=== PATIENT | male | born 2000 | race Caucasian/White ===

== ENCOUNTER 2025-06-30 20:41 | Emergency (ER) | payer OTHER ==
[~2025-06-30] VITALS: Ht 185.4 cm; Wt 79.1 kg
[2025-06-30] MEDS ORDERED: DOXYCYCLINE HYCLATE 100 MG HOME.PACK PO ONE (22:15)
[2025-06-30 22:17] VITALS: BP 136/89
== END 2025-06-30 22:18 | disposition home or self-care (01) ==
LOC: ED 20:41
DX: L02.511 Cutaneous abscess of right hand (principal); L03.113 Cellulitis of right upper limb
CPT/HCPCS: 10060; 99283-25; A9270

== ENCOUNTER 2025-08-06 10:20 | Emergency (ER) | payer OTHER ==
[~2025-08-06] VITALS: Ht 185.4 cm; Wt 84.5 kg
[2025-08-06] MEDS ORDERED: ASPIRIN 81 MG CHEW PO ONE (10:30)
[2025-08-06 10:48] LABS: BASOPHILS 0.4 % (0.2-1.2); EOSINOPHILS 0.7 % (0.8-7.0); LYMPHOCYTES 15.0 % (21.8-53.1); MCH 31.4 PG (25.7-32.2); MCHC 34.1 g/dL (32.3-36.5); MCV 92.0 fL (79.0-92.2); MONOCYTES 9.7 % (5.3-12.2); NEUTROPHILS 73.9 % (34.0-67.9); RBC 4.37 M/uL (4.63-6.08)
[2025-08-06 11:06] LABS: ALT (SGPT) 19 U/L (14-59); AST (SGOT) 16 U/L (15-37); GLOMERULAR FILTRATION RATE,EST 128 mL/min (>60); PROTEIN, TOTAL 7.0 g/dL (6.4-8.2); UREA NITROGEN 15 mg/dL (7-18)
[2025-08-06 13:50] VITALS: BP 112/65
--- NOTE | 2025-08-09 18:03 | EKG ---
[facility] [address] [place] [address] Signed Sinus tachycardia Otherwise normal ECG No previous ECGs available Confirmed by Abbi Gamez MD () on 08/09/2025 6:03:40 PM Electronically Signed By: ABBI GAMEZ MD 08/09/251802 PATIENT NAME: BIANKAANJELICA LITO Electrocardiogram DATE OF : [birth year] PHYSICIAN: ABBI GAMEZ MD REPORT #: [id number] REPORT IS CONFIDENTIAL AND NOT TO BE RELEASED WITHOUT AUTHORIZATION
== END 2025-08-06 13:50 | disposition home or self-care (01) ==
LOC: ED 10:20
PROVIDERS: Emergency Medicine
DX: R07.9 Chest pain, unspecified (principal)
CPT/HCPCS: 36415; 71045; 80053; 83735; 84484; 85025; 93005; 93010; 99285-25; A9270

== ENCOUNTER 2025-08-10 13:15 | Inpatient (IN) | payer OTHER ==
[~2025-08-10] VITALS: Ht 185.4 cm; Wt 82.6 kg
--- OUTSIDE RECORDS SUMMARY | 2025-08-10 13:16 | XMS ---
PreManage Notification: ANJELICA CARLTON Security Tie Bucker Events No recent Security Events currently on file CRITERIA MET - [facility] - 2 Visits in 30 Days CARE PROVIDERS -, [facility] Dentist: Anesthesiology [facility] [place] PHONE: [phone] SHREYA QUILES Physician [employer] Current PHONE: Unknown [facility] Clinic/Center: [facility] Qualified [facility] <UNAVAIL> PHONE: [phone] Danuta has no Care Guidelines for this patient. E.D. VISIT COUNT (12 MO.) 3 ANUJA Gonzales TOTAL 3 NOTE: Visits indicate total known visits. ED/UCC VISIT TRACKING (12 MO.) 08/10/2025 13:16 ANUJA Morales OR TYPE: Emergency COMPLAINT: - FLANK PAIN 08/06/2025 10:21 ANUJA Morales [place] TYPE: Emergency COMPLAINT: - CHEST PAIN DIAGNOSES: - Chest pain, unspecified 06/30/2025 20:42 ANUJA Morales OR TYPE: Emergency COMPLAINT: - SWOLLEN HAND DIAGNOSES: - Cellulitis of right upper limb - Cutaneous abscess of right hand - Pain in right hand INPATIENT VISIT TRACKING (12 MO.) 02/26/2025 01:59 [facility] OR TYPE: Medical Surgical DIAGNOSES: - Cocaine use, unspecified, uncomplicated - Other stimulant dependence, uncomplicated - Unspecified psychosis not due to a substance or known physiological condition [id number]
[2025-08-10] MEDS ORDERED: KETOROLAC TROMETHAMINE 15 MG/ML VIAL IV ONE (13:45)
[2025-08-10 13:46] LABS: BASOPHILS 0.5 % (0.2-1.2); EOSINOPHILS 0.7 % (0.8-7.0); LYMPHOCYTES 14.3 % (21.8-53.1); MCH 30.8 PG (25.7-32.2); MCHC 33.7 g/dL (32.3-36.5); MCV 91.6 fL (79.0-92.2); MONOCYTES 9.1 % (5.3-12.2); NEUTROPHILS 75.2 % (34.0-67.9); RBC 4.51 M/uL (4.63-6.08)
[2025-08-10 14:06] LABS: ALT (SGPT) 19.0 U/L (14-59); AST (SGOT) 20.0 U/L (15-37); GLOMERULAR FILTRATION RATE,EST 130.0 mL/min (>60); PROTEIN, TOTAL 7.7 g/dL (6.4-8.2); UREA NITROGEN 14.0 mg/dL (7-18)
[2025-08-10] MEDS ORDERED: SODIUM CHLORIDE 0.9% 1,000 ML IV PRN ×2 (14:15→15:00)
[2025-08-10 14:53] LABS: LACTIC ACID, BLOOD 0.7 mmol/L (0.4-2.0)
[2025-08-10 14:54] LABS: INR 1.13 (0.80-1.30); PROTIME 14.1 Sec (11.2-14.2)
[2025-08-10] MEDS ORDERED: VANCOMYCIN HCL 2,000 MG in DEXTROSE 5% 500 ML IV ONE (15:00)
[2025-08-10] MEDS ORDERED: SODIUM CHLORIDE 0.9% 500 ML IV PRN (15:00)
[2025-08-10] MEDS ORDERED: CEFEPIME HCL 2 GM in SODIUM CHLORIDE 0.9% 100 ML IV ONE (15:00)
[2025-08-10 15:20] LABS: INFLUENZA B NAA NEGATIVE (NEGATIVE); RESPIRATORY SYNCYTIAL VIR NAA NEGATIVE (NEGATIVE)
[2025-08-10] MEDS ORDERED: ACETAMINOPHEN 500 MG TAB PO ONE (16:15)
[2025-08-10] MEDS ORDERED: ACETAMINOPHEN 325 MG TAB PO PRN (17:30)
[2025-08-10] MEDS ORDERED: SODIUM CHLORIDE 0.9% 1,000 ML IV SCH (17:30)
[2025-08-10 17:52] LABS: BLOOD/HGB, URINE TRACE-I (Negative); KETONE, URINE SMALL (Negative); LEUK ESTERASE, URINE NEGATIVE (negative); NITRITE, URINE NEGATIVE (negative)
[2025-08-10 18:03] LABS: EPITHELIAL CELLS, URINE SQUAMOUS 1+ /lpf (0-1+)
[2025-08-10 18:04] LABS: BACTERIA, URINE NONE SEEN /hpf (negative); CASTS, URINE NONE SEEN \\lpf; CRYSTALS, URINE NONE SEEN (0-1+); REFLEX CULTURE, URINE No (No)
[2025-08-10 18:18] VITALS: BP 108/68
[2025-08-10 18:20] LABS: AMPHETAMINES, URINE POSITIVE (NEGATIVE); BARBITURATES, URINE NEGATIVE (NEGATIVE); BENZODIAZEPINE, URINE NEGATIVE (NEGATIVE); CANNABINOID, URINE POSITIVE (NEGATIVE); COCAINE, URINE NEGATIVE (NEGATIVE); ECSTASY, URINE POSITIVE (NEGATIVE); FENTANYL, URINE POSITIVE (NEGATIVE); METHADONE, URINE NEGATIVE (NEGATIVE); OPIATES, URINE NEGATIVE (NEGATIVE); OXYCODONE, URINE NEGATIVE (NEGATIVE); PHENCYCLIDINE, URINE NEGATIVE (NEGATIVE)
[2025-08-10] MEDS ORDERED: NICOTINE 21 MG/24 HR 1 EA TDSY TD SCH (18:30)
[2025-08-10] MEDS ORDERED: ALBUTEROL SULFATE 0.083% 3 ML VIAL INH PRN (18:45)
--- NOTE | 2025-08-10 18:53 | NUR ---
PATIENT ADMITTED TO CCU AROUND 1809 FOR MULTIFOCAL PNEUMONIA. PT IS DROWSY BUT ABLE TO BE AWOKEN TO STAND AND PIVOT TO CCU BED. HR IN THE 120s WITH THIS ACTIVITY. PT FALLS BACK ASLEEP QUICKLY BUT DOES AWAKEN WITH LIGHT TOUCH AND VOICE. PT ADMITS TO USING FENTANYL EARLIER TODAY AROUND 1200, WHICH HE SMOKES DAILY. PT HAS 9/10 PAIN IN RIGHT SIDE CHEST/FLANK/LATERAL SIDE. PT ARRIVES ON ROOM AIR AND SP02 STAYING ABOVE 90% INITIALLY BUT THEN FALLS AND NEEDING OXYGEN. PT NOW ON 2 L NC. PLAN OF CARE DISCUSSED. PT'S S/O SHREYA TO BE COMING BACK TO STAY WITH HIM. PT REPORTS BEING HOMELESS. PHONE CALL WITH PT'S MOTHER DESTINY AND SHE LEFT HER NUMBER [phone] AND STATES SHE WOUL DLIKE AN UPDATE IF ANYTHING CHANGES WITH PATIENT. NS AT 125 ML/HR INFUSING PER EMAR ORDER. LAST BP 96/48 (62) AND WILL CONTINUE TO MONITOR. HR NOW 109. BED ALARM ON FOR SAFETY PATIENT REMAINS DROWSY.
[2025-08-10 19:00] VITALS: BP 99/56
[2025-08-10 20:00] VITALS: BP 110/65
--- NOTE | 2025-08-10 20:15 | NUR ---
RECEIVED REPORT FROM DAY SHIFT NURSE. PATIENT ASSESSMENT COMPLETE. PATIENT HAS NO COMPLAINT OF PAIN. SOME REDNESS AROUND A TATTOO ON PATIENT'S LEFT ARM. PATIENT AND PATIENT'S PARTNER REQUESTING FOOD AT THIS TIME. GIVEN JUICE AND SANDWICH. PATIENT AROUSES TO PHYSICAL STIMULI BUT DECLINES TO COMMUNICATE WHEN ASKED QUESTIONS. CALL LIGHT AND PERSONAL BELONGINGS ARE WITHIN REACH.
[2025-08-10 21:00] VITALS: BP 108/59
--- NOTE | 2025-08-10 21:54 | EKG ---
[facility] [address] [facility] [place] [address] Signed Sinus tachycardia Otherwise normal ECG When compared with ECG of 06-AUG-2025 10:26, No significant change was found Confirmed by Abbi Gamez MD () on 08/10/2025 9:54:31 PM Electronically Signed By: ABBI GAMEZ MD 08/10/[id number] PATIENT NAME: ANJELICA CARLTON Electrocardiogram DATE OF : [birth year] PHYSICIAN: ABBI GAMEZ MD REPORT #: [id number] REPORT IS CONFIDENTIAL AND NOT TO BE RELEASED WITHOUT AUTHORIZATION
[2025-08-10 22:00] VITALS: BP 107/57
[2025-08-10] MEDS ORDERED: PIPERACILLIN/TAZOBACTAM 4.5 GM in DEXTROSE 5% 100 ML IV SCH (22:00)
--- NOTE | 2025-08-10 22:45 | NUR ---
PATIENT UPDATED ON MRSA RESULTS, PRECAUTIONS INITIATED, PATIENT DENIES FURTHER QUESTIONS. IV ANTIBIOTICS AND FLUIDS INFUSING WNL. PATIENT NOW RESTING WITH EYES CLOSED, RESPIRATIONS EVEN AND UNLABORED, HR 113 AND RR 33. CALL LIGHT AND PERSONAL BELONGINGS ARE WITHIN REACH.
[2025-08-10 23:00] VITALS: BP 113/60
[2025-08-11] VITALS (21 sets, daily range): BP systolic 106–135; BP diastolic 48–101
[2025-08-11] MEDS ORDERED: VANCOMYCIN HCL 1,250 MG in DEXTROSE 5% 250 ML IV SCH
--- NOTE | 2025-08-11 02:20 | NUR ---
UPDATED DR. GAMEZ ABOUT PATIENT'S PAIN AND REQUEST OF PAIN MEDICATIONS. i DISCUSSED GIVING HIM THE PRN TYLENOL AND TRYING A HOT. PATIENT IS HAVING 6/10 RIGHT SIDE PAIN. COMMUNICATED PLANNING TO PUT IN ORDERS.
[2025-08-11] MEDS ORDERED: HYDROmorphone HCL 1 MG/ML SYR IV PRN (02:30)
[2025-08-11] MEDS ORDERED: KETOROLAC TROMETHAMINE 15 MG/ML VIAL IV PRN (02:30)
--- NOTE | 2025-08-11 03:15 | NUR ---
PATIENT GIVEN IV TORADOL AND DILAUDID PER MAR. PATIENT REPORTED PAIN 7/10 ON RIGHT SIDE OF CHEST, STATES "HURTS WORSE WHEN I COUGH OR TAKE A DEEP BREATH" PATIENT SCREAMED OUT IN PAIN WHILE COUGHING. PATIENT PERFUSELY SWEATING WITH A TEMP OF 99.1, ICE PACK AND ICE WATER GIVEN AND COVERS REMOVED. PATIENT REQUESTING SWEETS STATING, "I USE OPIATES I HAVE A SWEET TOOTH, THAT'S WHY I AM CRAVING SWEETS." PATIENT GIVEN PUDDING AND DEMETRI CRACKERS. NO FURTHER NEEDS REPORTED AT THIS TIME.
[2025-08-11 05:16] LABS: BASOPHILS 0.4 % (0.2-1.2); EOSINOPHILS 0.6 % (0.8-7.0); LYMPHOCYTES 11.6 % (21.8-53.1); MCH 30.8 PG (25.7-32.2); MCHC 34.3 g/dL (32.3-36.5); MCV 89.8 fL (79.0-92.2); MONOCYTES 10.9 % (5.3-12.2); NEUTROPHILS 76.2 % (34.0-67.9); RBC 4.12 M/uL (4.63-6.08)
--- NOTE | 2025-08-11 05:21 | NUR ---
patient uses call light to use restroom. patient up to bathroom, voids, then ambulates back to bed. patient steady on feet. patient provided with snacks. no further needs at this time. call light in reach.
[2025-08-11 05:35] LABS: ALT (SGPT) 19.0 U/L (14-59); AST (SGOT) 14.0 U/L (15-37); GLOMERULAR FILTRATION RATE,EST 137.0 mL/min (>60); PHOSPHORUS, INORGANIC 3.0 mg/dL (2.5-4.9); PROTEIN, TOTAL 6.0 g/dL (6.4-8.2); UREA NITROGEN 8.0 mg/dL (7-18)
[2025-08-11] MEDS ORDERED: IBUPROFEN 600 MG TAB PO PRN (07:15)
--- NOTE | 2025-08-11 07:30 | NUR ---
received report, in room to answer call light, pt resting in bed with eyes closed, hr 90's. s/o in chair wants to know when breakfast is? educated and updated white board. pt with call light and iv fusing wnl.
--- NOTE | 2025-08-11 07:33 | NUR ---
UR CLINICAL REVIEW: [facility], MEETS INPT FOR ASPIRATION PNEUMONIA TACHYPNEA, TACHYCARDIA, IV FLUIDS, IV ANTIBIOTICS, WHITE COUNT 13.01, SURGICAL CONSULT, POTENTIAL CHEST TUBE NEED, SURGICAL CONSULT [facility] INPT 08/10/25 @ 1729 ORDER MATCHES REG AUTH PENDING, WILL SEND CLINICALS FOR REVIEW TODAY. PLAN TO DC TO HOME WHEN MEDICALLY CLEAR VERSUS TRANSFER TO HIGHER LEVEL OF CARE. DC REVIEW: 08/12/25
--- NOTE | 2025-08-11 07:47 | NUR ---
RECIEVED SHIFT REPORT. PT IS RESTING IN BED, EYES CLOSED. BREATHING EVEN AND UNLABORED. BREAKFAST BROUGHT INTO ROOM. VISITOR AT BEDSIDE. CALL LIGHT IN REACH.
[2025-08-11] MEDS ORDERED: NICOTINE 21 MG/24 HR 1 EA TDSY TD SCH (09:00)
[2025-08-11] MEDS ORDERED: VANCOMYCIN PER PHARMACY PROTOCOL IV SCH (09:00)
--- NOTE | 2025-08-11 09:17 | NUR ---
IN ROOM WITH DR TO SEE PT, HE AWAKENS TO TOUCH AND STIMULI. DISCUSSED PREVIOUS WITHDRAWL SYMPTOMS - SWEATING, SWEET CRAVINGS, ANXIETY. PT IN BED, WITH CALL LIGHT.
--- NOTE | 2025-08-11 09:30 | NUR ---
20 G IV INSERTED BY THIS RN IN THE RFA DUE TO MULTIPLE ABX USE. PATIENT TOLERATED WELL, PATENT. ABX INFUSING WITHOUT DIFFICULTY. CALL LIGHT IN REACH.
[2025-08-11] MEDS ORDERED: LORazepam 2 MG/ML VIAL IV PRN (10:00)
--- NOTE | 2025-08-11 10:00 | NUR ---
INTO SEE PATIENT. PATIENT PERSONAL HEALTH INFORMATION REVIEWED. PATIENT WOULD LIKE HELP GETTING A PRIMARY CARE PROVIDER HERE IN [place]. PATIENT IS CURRENTLY HOMELESS. GIRLFRIEND IN ROOM. THEY HAVE HAD THERE NAME ON A LIST FOR [facility]. SPOKE WITH HIM ABOUT WANTING ANY ADDICTION SERVICES INPATIENT OR OUTPATIENT. PATIENT STATES "I HAVE BEEN TO REHAB 4 TIMES AND IT NEVER HAS WORKED FOR ME." GAVE HIM THE HOMELESS AND ADDICTION RESOURCE [place], LOC AND AMADO. LET THEM KNOW THEY COULD POTENTIALLY HELP WITH TEMPORARY HOUSING. LEFT MESSAGE WITH [facility] TO SCHEDULE FOR NEW PCP
--- NOTE | 2025-08-11 10:31 | NUR ---
RN IN ROOM TO POSITION PT AT BEDSIDE FOR US WITH ERASTO BELLO. HE IS PREPPING AND LOOKING AT RIGHT CHEST FOR RADIOLOGY TO DRAIN FLUID LATER THIS AFTERNOON. PT TOLLERATED WELL. NPO CONFIRMED. CALL LIGHT IN REACH.
--- NOTE | 2025-08-11 10:40 | NUR ---
IN ROOM WITH PT AND S/O WHILE WILLY DC DISPATCH SPECIALIST IS IN, PT RESTING IN BED WITH CALL LIGHT - REPORTS PAIN IMPROVED TO R CHEST 03/31.
--- NOTE | 2025-08-11 10:58 | NUR ---
call from [facility] in xray with report that dr phelan radiology would type up report concern for less than 500 ml of fluid loculated in us of right chest. dr toledo notified by this rn that bedside us was done and dr toledo will call now to speak with zhane for further plan of care.
--- NOTE | 2025-08-11 11:01 | NUR ---
CALL LIGHT ANSWERED. IVF AND IV ABX COMPLETE. NEW IVF BAG INFUSING PER EMAR. PATIENT DENIES NEEDS AT THIS TIME. PATIENTS S/O EDUCATED TO NOT PROVIDED PATIENT W/ FOOD OR FLUIDS AT THIS TIME. PATIENTS S/O VERBALIZES UNDERSTANDING. CALL LIGHT IN REACH
[2025-08-11] MEDS ORDERED: PHARMACY RENAL DOSE ADJUSTMENT 1 DOSE MISC PO SCH (12:00)
--- NOTE | 2025-08-11 12:34 | NUR ---
ASSESSMENT COMPLETED, VS DOCUMENTED. S/O IN ROOM. IVF INFUSING WITHOUT DIFFICULTY. NO NEEDS AT THIS TIME. CALL LIGHT IN HAND.
--- NOTE | 2025-08-11 13:12 | NUR ---
ROUNDED ON PATIENT, RESTING WITH EYES CLOSED, RESPIRATIONS EVEN AND UNLABORED. IVF INFUSING WITHOUT DIFFICULTY. S/O IN ROOM. VS DOCUMENTED. NO NEEDS IDENTIFIED AT THIS TIME. CALL LIGHT IN REACH.
--- NOTE | 2025-08-11 14:00 | NUR ---
in pt room to assist for c/o being warm - repositioned pt for xray feet on ground vitals taken - chg wipes done by rn, pt on room air sats 94%. call light in reach with 3 xray staff at pt side for procedure.
--- NOTE | 2025-08-11 14:37 | NUR ---
PT REPORTS 5/10 R CHEST/LUNG PAIN - COUGHS UP THICK DARK SPUTUM, SLIGHT HAND TREMOR. SLEEPY AND REPETATIVLY ASKING FOR FOOD AND HE IS NPO - EXPLIANED THAT WE WILL CALL AND ASK DR ABOUT FOOD NOW THAT TEST IS DONE. SPECIMEN SENT TO LAB FROM TEST BY REFRACTORY MANAGER CHELSEY. R POSTERIOR LUNG HAS SMALL PUNCTURE AREA AND COVERED WITH SMALL BAND AID. DR GAMEZ IN AT BEDSIDE AT 1439. PT ASKS FOR ICECREAM.
[2025-08-11 15:11] LABS: APPEARANCE, BODY FLUID SLIGHTLY CLOUDY; MONONUCLEAR CELLS, BODY FLUID 10 %; PMNS, BODY FLUID 90 %; RBC, BODY FLUID 556 /mm3
[2025-08-11 15:12] LABS: WBC, BODY FLUID 16444 /mm3
--- NOTE | 2025-08-11 15:42 | NUR ---
MED REC COMPLETE
[2025-08-11] MEDS ORDERED: VANCOMYCIN HCL 1,750 MG in DEXTROSE 5% 500 ML IV SCH (16:00)
--- NOTE | 2025-08-11 16:30 | NUR ---
PT SLEEPING IN ROOM. PT ALERT WHEN WOKEN UP. RLL DIMINISHED. OTHER LOBES CLEAR. PT DETOXING FROM METH. PT SLEEPING AND IS CRAVING SUGARY FOOD. PT STILL TACHY WITH A LOW GRADE FEVER. PT DID STATE THAT HE WAS BREATHING BETTER THOUGH.
--- NOTE | 2025-08-11 19:50 | NUR ---
RECEIVED REPORT FROM DAY SHIFT NURSE. PATIENT CONTINUES TO BE IN MRSA PECAUTIONS. PATIENT HAS TEMP OF 101.6, ICE WATER, ICE PACK AND MOTRIN GIVEN, WASHCLOTH ON FOREHEAD. PATIENT REPORTED 7/10 RIGHT RIB PAIN, PRN DILAUDID GIVEN. PATIENT'S DRESSING ON RIGHT BACK IS WNL, CLEAN DRY AND INTACT. DENIES SOB, ENDORSES INCREASED PAIN WITH DEEP BREATHING. IV SITES WNL. LUNG SOUNDS CLEAR IN UPPER LOBES AND DIMINISHED IN THE BILATERAL BASES. PATIENT DENIES FURTHER NEEDS AT THIS TIME. PARTNER SLEEPING IN THE COUCH.
--- NOTE | 2025-08-11 22:16 | NUR ---
FEVER IMPROVING WITH TEMP OF 100.5, ICE PACK AND WASH CLOTH IN PLACE. PATIENT REPORTS 4/10 PAIN. DENIES FURTHER NEEDS. FRESH ICE WATER AND SNACKS AT THE BEDSIDE. IV ANTIBIOTICS AND FLUIDS INFUSING WNL.
--- NOTE | 2025-08-11 22:24 | NUR ---
PATIENT'S MOM CALLED ASKING TO SPEAK TO PATIENT. PER PATIENT'S APPROVAL CALL TRANSFERRED TO PHONE IN ROOM. PATIENT TALKING TO MOTHER.
--- NOTE | 2025-08-11 22:31 | NUR ---
CALL LIGHT ANSWERED FRESH ICE WATER AND SNACKS GIEVN PER REQUEST. PATIENT DENIES FURTHER NEEDS.
[2025-08-12] VITALS (9 sets, daily range): BP systolic 101–137; BP diastolic 43–97
[2025-08-12 05:19] LABS: BASOPHILS 0.4 % (0.2-1.2); EOSINOPHILS 1.3 % (0.8-7.0); LYMPHOCYTES 15.5 % (21.8-53.1); MCH 30.3 PG (25.7-32.2); MCHC 33.6 g/dL (32.3-36.5); MCV 90.1 fL (79.0-92.2); MONOCYTES 12.7 % (5.3-12.2); NEUTROPHILS 69.7 % (34.0-67.9); RBC 4.03 M/uL (4.63-6.08)
[2025-08-12 05:38] LABS: ALT (SGPT) 20.0 U/L (14-59); AST (SGOT) 14.0 U/L (15-37); GLOMERULAR FILTRATION RATE,EST 140.0 mL/min (>60); PROTEIN, TOTAL 6.1 g/dL (6.4-8.2); UREA NITROGEN 5.0 mg/dL (7-18)
--- NOTE | 2025-08-12 07:25 | NUR ---
report from mine shifter, pt resting in bed hr 100's, call light in reach. eyes closed.
--- NOTE | 2025-08-12 08:23 | NUR ---
xray in for f/u cxr. pt eating breakfast and reports pain to r chest improved today - still anxious and agitated post meth use. voids using urinal qs. call light in reach.
--- NOTE | 2025-08-12 08:26 | NUR ---
DC REVIEW: BARRIERS TO DC NOTED HOMELESS WITH ACTIVE IVDA AND LACK OF RESOURCES RESOURCES PROVIDED FOR LOCAL SUBASTANCE ABUSE SERVICES, MEAL OPTIONS AND HOUSING. ESTABLISHED WITH PCP PRIOR TO DC ADD:TBD NO ACTIONS REQUIRED
--- NOTE | 2025-08-12 09:30 | NUR ---
INTO SEE PATIENT. GIRLFRIEND AT BEDSIDE. PATIENT AGREEABLE TO SEE LOC. LET HIM KNOW LOC WOULD BE UP AT SOME POINT TODAY. LET HIM KNOW I GOT HIM A PCP HERE IN [place]. PATIENT GIRLFRIEND STATES [facility] WILL HELP THEM AT TIME OF DISCHARGE.
--- NOTE | 2025-08-12 10:10 | NUR ---
dee staff in to see pt and s/o - dr toledo in to see pt skin - new tatoo left arm with red area that is open. pt reports it is improved. pt bari is alert and awake and not interested in detox with staff member.
--- NOTE | 2025-08-12 11:24 | NUR ---
UPDATED DR GAMEZ ON I/O - OK TO SL IV, PT VOID QS IN TOILET - AMB IN ROOM AND UP IN CH CURRENTLY WITH CALL LIGHT IN REACH.
--- NOTE | 2025-08-12 11:53 | NUR ---
PT UP IN CHAIR, CALL LIGHT IN REACH - LUNCH TO BEDSIDE, EYES CLOSED HR 97 PT ON ROOM AIR, IV SL.
--- NOTE | 2025-08-12 12:01 | NUR ---
PT REMOVED ALL HIS MONITORS - CARDIAC LEADS AND WALKED TO BATHROOM-STEADY GAIT - VOID QS. PT BACK TO CHAIR FOR LUNCH. SATS 100% ROOM AIR, 116 HR, TEMP 99. PT WITH CALL LIGHT.
--- NOTE | 2025-08-12 13:50 | NUR ---
pt ate 100% of lunch - resting in bed with call light, pt education on new pcp to bedside.
--- NOTE | 2025-08-12 15:25 | NUR ---
pt resting in bed, resp even, call light in reach - oj and warm blanket provided from his previous request-
--- NOTE | 2025-08-12 17:02 | NUR ---
PT NOTED TO HAVE NICOTINE PATCH ON BEDSIDE TABLE. PT STATED IT IS "MAKING HIM SWEAT". PT DOES NOT WANT TO HAVE IT REPLACED. DISPOSED OF PATCH.
--- NOTE | 2025-08-12 18:47 | NUR ---
pt provided orange juice and warm blkt. oral temp 98. and pt awake watching tv and talking on cell phone. call light in reach - denies needs.
--- NOTE | 2025-08-12 18:55 | NUR ---
abx complete - sl flush iv wnl. pt resting with call light.
--- NOTE | 2025-08-12 20:00 | NUR ---
PATIENT RESTING IN BED. EYES CLOSED, ALERT AND RESPONSIVE TO THIS RN SAYING HIS NAME. INTRODUCED MYSELF AND DISCUSSED CARE PLAN FOR TONIGHT WITH PATIENT. HE IS COOPERATIVE AT THIS TIME TO HAVE HIS HEART MONITOR LEADS PLACED, OXYGEN SENSOR PLACED AND B/P TAKEN. HE REPORTS HIS PAIN IS 6/10 BUT THIS IS BETTER THAN EARLIER, HE REPORTS TYLENOL AND MOTRIN WAS HELPFUL. HE ASKED TO HAVE LIGHT OVER COUCH TURNED OFF AND IF THERE IS ANY MILK AND OR SNACKS AVAILABLE. THIS RN PROVIDED MILK, PUDDING, 2 FRIUT CUPS, AND DEMETRI CRACKERS. PATIENT VERBALIZED, "THANK YOU." HE REPORTS NO FURTHER NEEDS AT THIS TIME. DISCUSSED WITH PATIENT THAT IF HIS PAIN INCREASES TO CALL TO ALERT THIS RN FOR INTERVENTION. HE NODDED HIS HEAD, YES AND SAID "OK". DISCUSSED WITH PATIENT TO CALL BEFORE GETTING OUT OF BED FOR LINE MANAGEMENT, HE VERBALIZED, "OK." CALL IGHT IN REACH. ASSESSMENT COMPLETE. NO NEW CONCERNS FROM SHIFT REPORT.
--- NOTE | 2025-08-12 21:25 | NUR ---
PATIENT UP OUT OF BED, USED CALL LIGHT TO CALL NURSE, THIS RN INTO PATIENT ROOM, HE REPORTS HE NEEDS TO "PEE." ASSISTED WITH LINE MAMAGEMENT. PATIENT VOIDED IN TOILET THEN BACK TO BED. HE REPORTS HE WOULD LIKE MORE FOOD IF POSSIBLE. LUNCH BOX ORDERED.
--- NOTE | 2025-08-12 22:32 | NUR ---
PATIENTS SIGNIFICANT OTHER BACK IN ROOM. THIS RN ASKED HER IF SHE WAS HUNGRY, SHE SAID, "A LITTLE." THIS RN PROVIDED HER WITH LUNCH BOX AND APPLE JUICE. PATIENT IS RESTING IN BED, DROWSY BUT ALERT TO RN TALKING. HE REPORTS NO NEEDS AT THIS TIME.
[2025-08-13] VITALS (8 sets, daily range): BP systolic 97–128; BP diastolic 55–83
--- NOTE | 2025-08-13 00:05 | NUR ---
PATIENT VOIDED 700 ML IN URINAL AT BEDSIDED. THIS RN INTO COMPLETE ASSESSMENT AND ADMINISTER VANCOMYCIN SCHEDULED DOSE AT THIS TIME. HE IS ALERT, HE REPORTS HE IS DOING WELL, HE REPORTS NO NEEDS AT THIS TIME. HE IS INTERACTING WITH STAFF APPROPRIATELY. HE IS OFFERED ORANGE JUICE, HE SAID YES PLEASE, HE WAS OFFERED MEAL BOX HE DECLINED AT THIS TIME. NO NEW CONCERNS ON ASSESSMENT.
--- NOTE | 2025-08-13 00:37 | NUR ---
PATIENT CALLED NURSES STATION, THIS RN INTO ROOM. PATIENT REPORTS PAIN AT HIS LOWER LEFT BACK, 6/10 HE IS NOTED TO BE RESTLESS, HE REPORTS THIS IS CHRONIC, HE SAID, "ITS NOT NEW, I JUST HAVENT BEEN ABLE TO POP MY BACK." DILAUDID AND TYLENOL ADMINISTERED PRN, ICE PACK PROVIDED PER HIS REQUEST. NO OTHER REQUESTS AT THIS TIME.
--- NOTE | 2025-08-13 02:02 | NUR ---
PATIENT NOTED TO HAVE INCREASE HEART RATE TO 137/MIN, THIS RN INTO PATIENT ROOM TO CHECK ON HIM, HE IS GETTING BACK TO BED AFTER URINATING AT BEDSIDE IN URINAL 600ML CLEAR YELLOW. PATIENT REPORTS NO NEEDS AT THIS TIME.
--- NOTE | 2025-08-13 05:31 | NUR ---
ROUDNING ON PATIENT FOR AM ASSESSMENT AND V/S, PATIENT IS VERY RESTLESS, REPORTS PAINFUL 6/10, VERBALIZED NEEDS MORE THAN MOTRIN, MOTRIN AND DILAUDID PRN ADMINISTERED FOR GENERALIZED PAIN AND RIGHT CHEST WALL WELL BACK. NO NEW CONCERNS ON ASSESSMENT. PATIENT UP TO BATHROOM TO VOID. TOLERATED ACTIVITY WELL. STEADY GAIT. PATIENT REPORTS NO OTHER NEEDS AT THIS TIME. CALL LIGHT IN REACH.
--- NOTE | 2025-08-13 07:15 | NUR ---
HANDOFF REPORT RECEIVED FROM KAISER GRAVES. ALL QUESTIONS ANSWERED. PATIENT RESTING IN BED. HR 70'S, NSR. CALL LIGHT IN REACH
[2025-08-13 07:45] LABS: BASOPHILS 0.6 % (0.2-1.2); EOSINOPHILS 1.4 % (0.8-7.0); LYMPHOCYTES 14.3 % (21.8-53.1); MCH 30.6 PG (25.7-32.2); MCHC 33.4 g/dL (32.3-36.5); MCV 91.6 fL (79.0-92.2); MONOCYTES 9.4 % (5.3-12.2); NEUTROPHILS 74.0 % (34.0-67.9); RBC 4.41 M/uL (4.63-6.08)
[2025-08-13 08:02] LABS: ALT (SGPT) 41.0 U/L (14-59); AST (SGOT) 21.0 U/L (15-37); GLOMERULAR FILTRATION RATE,EST 130.0 mL/min (>60); PROTEIN, TOTAL 7.0 g/dL (6.4-8.2); UREA NITROGEN 4.0 mg/dL (7-18)
--- NOTE | 2025-08-13 08:15 | NUR ---
PATIENT ASSESSMENT COMPLETE. PATIENT DROWSY AND RESTING IN BED, BUT EASILY AROUSABLE TO VERBAL STIMULI AND RESPONDS APPROPRIATELY TO QUESTIONS. RR EVEN AND UNLABORED. PATIENT REMAINS ON RA, SPO2 98%. PATIENT DENIES SOB AT THIS TIME. HR 70'S-80'S, NSR. PATIENT RATING PAIN 4/10 IN THE R. SIDE OF CHEST WALL, PATIENT DECLINES NEED FOR PAIN MEDICATION AT THIS TIME. PATIENT REQUESTING TO CONTINUE TO REST IN BED AT THIS TIME. MEAL TRAY AND CHAIR SET UP FOR PATIENT. PATIENT VERBALIZED THAT HE WILL GET UP TO CHAIR WHEN READY FOR MEAL. VITAL SIGNS STABLE. IV ABX INFUSING PER EMAR. PATIENT DECLINES NICOTINE PATCH THIS AM. NO FURTHER NEEDS IDENTIFIED. S/O AT BEDSIDE. CALL LIGHT IN REACH.
--- NOTE | 2025-08-13 09:30 | NUR ---
PATIENT RESTING IN BED. RR EVEN AND UNLABORED. PATIENT REMAINS IN NSR. NO EVIDENCE OF ACUTE DISTRESS NOTED. CALL LIGHT IN REACH
--- NOTE | 2025-08-13 11:15 | NUR ---
PATIENT RESTING IN BED. IV SITES SALINE LOCKED AND WNL. PATIENT DENIES SOB OR NAUSEA AT THIS TIME. PATIENT RATES PAIN 4/10 ON THE R. SIDE OF CHEST BUT STATES IT IS A TOLERABLE LEVEL AND DENIES NEED FOR PAIN MEDICATION. RR EVEN AND UNLABORED. SPO2 98% ON RA AND PATIENT TOLERATING WELL. PATIENT STATES HE AMBULATED TO BATHROOM AND HAD A X1 UM VOID. PATIENT PROVIDED SNACKS AND PO FLUIDS. PATIENT DENIES FURTHER NEEDS AT THIS TIME. PLAN MADE TO SHOWER LATER THIS AFTERNOON. PATIENT UPDATED ON POC. PATIENT SAT UP IN BED AND EDUCATED TO NOT EAT WHILE LYING DOWN TO PREVENT ASPIRATION PATIENT STATES VERBAL UNDERSTANDING. CALL LIGHT IN REACH
--- NOTE | 2025-08-13 12:18 | NUR ---
patient set up for shower. patient request s/o help w/ shower and denies help from this RN. patient educated on safety. patient instructed to utilize call light when done
--- NOTE | 2025-08-13 12:55 | NUR ---
HANDOFF REPORT GIVEN TO CJ AND TIA RN. ALL QUESTIONS ANSWERED. PATIENT AMBULATES TO MS RM 113. NO EVIDENCE OF ACUTE DISTRESS NOTED.
--- NOTE | 2025-08-13 13:01 | NUR ---
RECEIVED REPORT FROM KAISER ROQUE. PATIENT AMBULATED FROM CCU TO ROOM 113 WITH STEADY GAIT. S/O AT BEDSIDE WTIH BELONGINGS. ASSESSMENT COMPLETED. NO NEEDS AT THIS TIME. CALL LIGHT IN REACH.
--- NOTE | 2025-08-13 15:10 | NUR ---
SCHEDULED ABX INFUSING WITHOUT DIFFICULTY. S/O AT BEDSIDE. DENIES NEEDS AT THIS TIME. CALL LIGHT IN REACH.
--- NOTE | 2025-08-13 16:00 | NUR ---
ANSWERED CALL LIGHT FOR ASSISTANCE TO THE RESTROOM WITH LINES. IV ABX HUNG AND INFUSING WITHOUT DIFFICULTY. PATIENT BACK TO BED WATCHING TV. CALL LIGHT IN REACH.
--- NOTE | 2025-08-13 19:34 | NUR ---
RECEIVED REPORT FROM DESIRE RN. PT ASLEEP, SPOUSE AT BEDSIDE. WHITE BOARD UPDATED. CONTACT PRECAUTIONS IN PLACE.
--- NOTE | 2025-08-13 19:50 | NUR ---
PT SLEEPING. CALL LIGHT WITHIN REACH.
--- NOTE | 2025-08-13 21:15 | NUR ---
PT ASLEEP IN BED, APPEARS COMFORTABLE. AWAKENED BRIEFLY DURING ASSESSMENT AND QUICKLY BACK TO SLEEP. DENIES PAIN. VSS. LSC DIM TO RIGHT BASE. ON RA. MOIST NON-PROD COUGH. HRR. BTA, LBM TODAY. VOIDS WNL. RAC SL INFUSING IV ZOSYN. LFA TATTOO W/ SOME REDNESS AND WARMTH. GF ASLEEP AT BEDSIDE. CALL LIGHT WITHIN REACH.
--- NOTE | 2025-08-13 22:33 | NUR ---
PT ASLEEP ON RIGHT SIDE. APPEARS COMFORTABLE.
[2025-08-13 22:35] LABS: GLUCOSE,BODY FLUID 84 mg/dL (()); LACTATE DEHYDROGENASE TOTAL,BF 347 U/L (())
--- NOTE | 2025-08-13 23:55 | NUR ---
IV VANCO INITIATED PER EMAR. PT CONTINUES TO SLEEP SOUNDLY THROUGH CARE.
--- NOTE | 2025-08-14 02:11 | NUR ---
IV JEAN COMPLETED. PT SLEEPING SOUNDLY, RESP EVEN AND UNLABORED.
--- NOTE | 2025-08-14 04:32 | NUR ---
PT AWAKE, REQUESTING SNACKS. PUDDING OFFERED, PT ACCEPTED. NO OTHER NEEDS AT THIS TIME.
[2025-08-14 05:13] LABS: BASOPHILS 0.6 % (0.2-1.2); EOSINOPHILS 1.5 % (0.8-7.0); LYMPHOCYTES 14.7 % (21.8-53.1); MCH 30.7 PG (25.7-32.2); MCHC 33.8 g/dL (32.3-36.5); MCV 90.9 fL (79.0-92.2); MONOCYTES 8.3 % (5.3-12.2); NEUTROPHILS 74.5 % (34.0-67.9); RBC 4.72 M/uL (4.63-6.08)
[2025-08-14 05:32] LABS: ALT (SGPT) 104.0 U/L (14-59); AST (SGOT) 59.0 U/L (15-37); GLOMERULAR FILTRATION RATE,EST 125.0 mL/min (>60); PROTEIN, TOTAL 7.4 g/dL (6.4-8.2); UREA NITROGEN 6.0 mg/dL (7-18)
[2025-08-14 06:22] VITALS: BP 105/60
[2025-08-14 06:36] VITALS: BP 105/60
--- NOTE | 2025-08-14 07:17 | NUR ---
RECEIVED REPORT FROM KAISER BROOKE. PATIENT RESTING IN BED WITH EYES CLOSED, RESPIRATIONS EVEN AND UNLABORED. IV ABX INFUSING WITHOUT DIFFICULTY. S/O IN ROOM SLEEPING ON COUCH. NO NEEDS IDENTIFIED AT THIS TIME. CALL LIGHT IN REACH.
[2025-08-14] MEDS ORDERED: SODIUM CHLORIDE 0.9% 1,000 ML IV SCH (07:45)
--- NOTE | 2025-08-14 08:10 | NUR ---
IN TO DO MORNING ROUNDS AND TAKE PATIENT BREAKFAST. PATIENT SITTING UP IN BED, VISITORS IN ROOM. WHITEBOARD UPDATED. CALL LIGHT IN REACH. NO FURTHER NEEDS AT THIS TIME.
[2025-08-14 08:23] LABS: GLOMERULAR FILTRATION RATE,EST 129.0 mL/min (>60); UREA NITROGEN 6.0 mg/dL (7-18)
--- NOTE | 2025-08-14 09:35 | NUR ---
SCHEDULED ABX INFUSING PER EMAR ORDER, INFUSING WITHOUT DIFFICULTY. PATIENT LAYING AWAKE AND ALERT, IRRITABLE, STATED "I MAY LEAVE IM TIRED OF BEING HERE" THIS RN EDUCATED PATIENT ON IMPORTANCE OF STAYING, FAMILY/FRIEND IN ROOM. NO NEEDS IDENTIFED AT THIS TIME. CALL LIGHT IN REACH.
[2025-08-14 10:59] VITALS: BP 106/60
--- NOTE | 2025-08-14 11:21 | NUR ---
WELDER TECH REPORTS TO THIS RN THAT PT IS ANXIOUS TO LEAVE AND IV IS LEAKING. VERA CALLED. THIS RN IN ROOM TO ASSESS. IV DC'D. DISCUSSED MD WILL BE DOWN TO WORK ON DC PAPERWORK. PT IS GETTING DRESSED.
[2025-08-14] MEDS ORDERED: BACTRIM DS TAB1 EACH PO (11:41)
[2025-08-14] MEDS ORDERED: HYDROCODON-ACE1 EA10 PO (11:41)
[2025-08-14] MEDS ORDERED: AMOX TR-K CLV1 EAC1 PO (11:41)
== END 2025-08-14 11:44 | disposition home or self-care (01) | DRG 871 ==
LOC: ED 13:15 → CCU 17:32 → MS 08-13 12:59
PROVIDERS: Emergency Medicine; ADMIT Family Medicine; ATTEND Family Medicine
PROC: 3E03329 Introduction of Other Anti-infective into Peripheral Vein, Percutaneous Approach (ICD-10-PCS; 2025-08-10)
PROC: 0W9930Z Drainage of Right Pleural Cavity with Drainage Device, Percutaneous Approach (ICD-10-PCS; principal; 2025-08-11)
DX: A41.02 Sepsis due to Methicillin resistant Staphylococcus aureus (principal); J18.9 Pneumonia, unspecified organism; J69.0 Pneumonitis due to inhalation of food and vomit; J90 Pleural effusion, not elsewhere classified; M41.9 Scoliosis, unspecified; F10.90 Alcohol use, unspecified, uncomplicated; M54.50 Low back pain, unspecified; F15.10 Other stimulant abuse, uncomplicated; L53.8 Other specified erythematous conditions; F11.10 Opioid abuse, uncomplicated; F17.210 Nicotine dependence, cigarettes, uncomplicated; G89.29 Other chronic pain; R45.1 Restlessness and agitation; F13.10 Sedative, hypnotic or anxiolytic abuse, uncomplicated; F12.10 Cannabis abuse, uncomplicated; Z79.899 Other long term (current) drug therapy
CPT/HCPCS: 32555; 36415; 71045; 71260; 76604; 80048; 80053; 80202; 80307; 81001; 82550; 82945; 83605; 83735; 83986; 84100; 84157; 84484; 85025; 85379; 85610; 87070; 87075; 87205; 87502; 89051; 93005; 93010; 94667; 94668; 94799; A9270; J0692; J0696; J1171; J1885; J2060; J2543; J3373; J7030; J7040; J7060; Q9967; U0002